=== PATIENT | male | born 1955 | race Caucasian/White ===

== ENCOUNTER 2021-04-18 12:09 | Outpatient (CLI) | payer BC, SELFPAY ==
--- NOTE | ~2021-04-18 | XR_ITS ---
EXAMINATION: XR shoulder RT min 2V DATE: 04/18/2021 12:30 INDICATION: Right shoulder pain. TECHNIQUE: 5 views of right shoulder were obtained. COMPARISON: None. FINDINGS: Bone alignment is normal. No acute fracture. There is mild osteoarthritis of glenohumeral j oint and severe osteoarthritis of acromioclavicular joint. IMPRESSION: 1. Polyarticular osteoarthritis. Reviewed, dictated and finalized at location A. DRATOR
== END 2021-04-18 12:10 | disposition home or self-care (01) ==
LOC: CHSIMG 12:14
PROVIDERS: PCP Internal Medicine; Visit Provider Internal Medicine
DX: M25.511 Pain in right shoulder (principal)
CPT/HCPCS: 73030

== ENCOUNTER 2021-08-25 15:23 | Outpatient (CLI) | payer BC, SELFPAY ==
[2021-08-25 15:43] LABS: Basophils Absolute Auto 0.06 K/mm3 (0.00-0.10); Basophils Percent Auto 0.5 % (0.0-1.0); Eosinophils Percent Auto 1.8 % (1.0-6.0); Hematocrit 40.4 % (40.0-54.0); Hemoglobin 13.3 g/dL (14.0-18.0); Immature Granulocyte Absolute 0.04 K/mm3 (0.00-0.00); Immature Granulocyte Percent A 0.4 % (0.0-0.0); Lymphocytes Absolute Auto 1.91 K/mm3 (1.10-4.50); Lymphocytes Percent Auto 16.7 % (18.0-42.0); Mean Corpuscular HGB Conc 32.9 g/dL (32.0-36.0); Mean Corpuscular Hemoglobin 32.2 pg (27.0-31.0); Mean Corpuscular Volume 97.8 fL (78.0-102.0); Mean Platelet Volume 11.2 fl (8.7-11.0); Monocytes Absolute Auto 0.84 K/mm3 (0.10-0.90); Monocytes Percent Auto 7.4 % (2.0-11.0); Neutrophils Absolute Auto 8.4 K/mm3 (1.7-7.2); Neutrophils Percent Auto 73.2 % (50.0-70.0); Platelet Count Result 217 K/mm3 (150-420); Red Blood Count 4.13 M/mm3 (4.70-6.10); Red Cell Distribution Width 13.2 % (11.6-14.4); White Blood Count 11.4 K/mm3 (4.8-10.8)
[2021-08-25 16:00] LABS: Alanine Aminotransferase 35 U/L (16-63); Albumin Level 4.1 g/dL (3.4-5.0); Alkaline Phosphatase 73 U/L (46-116); Anion Gap 7 mmol/L (8-16); Aspartate Amino Transferase 24 U/L (15-37); Bilirubin,Total 0.3 mg/dL (0.00-1.00); Blood Urea Nitrogen 19 mg/dL (7-18); Calcium 8.9 mg/dL (8.5-10.1); Carbon Dioxide 30 mmol/L (21-32); Chloride 104 mmol/L (98-108); Estimated Glomerular Filt Rate > 60; Glucose 102 mg/dL (70-99); Osmolality Calculated 294 mOsm/kg (285-295); Potassium 4.1 mmol/L (3.5-5.1); Sodium 141 mmol/L (136-145); Uric Acid 7.1 mg/dL (3.5-7.2)
== END 2021-08-25 15:24 | disposition home or self-care (01) ==
LOC: CHSLAB 15:24
PROVIDERS: PCP Internal Medicine; Visit Provider Internal Medicine
DX: M10.9 Gout, unspecified (principal)
CPT/HCPCS: 36415; 80053; 84550; 85025

== ENCOUNTER 2021-11-28 09:09 | Outpatient (CLI) | payer BC, SELFPAY ==
--- NOTE | ~2021-11-28 | XR_ITS ---
EXAMINATION: XR hand RT min 3V DATE: 11/28/2021 09:24 INDICATION: Right hand pain and swelling . Gout. TECHNIQUE: Posteroanterior, oblique and lateral views of the right hand were obtained. COMPARISON: None. FINDINGS: Alignment is normal. No fracture. Mild polyarticular osteoarthritis including at the wrist, triscaphe , first carpometacarpal, first-third metacarpophalangeal and multiple interphalangeal joints. Suggest ion of a few small erosions including at the radial styloid process and at the radial side of the hea d of the third middle phalanx which may be related to reported history of gout. Subtle dystrophic sof t tissue calcification related to the head of the third metacarpal with prominent perinephric soft ti ssue swelling dorsal to the head of the third metacarpal. Additional mild periarticular soft tissue s welling about several of the interphalangeal joints. IMPRESSION: 1. Mild polyarticular osteoarthritis at the right hand and wrist. 2. Nonspecific subtle dystrophic soft tissue calcification and periarticular soft tissue swelling abo ut the head of the third metacarpal which along with a couple potential small erosions at the radial styloid process and head of the third middle phalanx could be related to reported history of gout. Reviewed, dictated and finalized at location B. IMPRESSION: 1. Mild polyarticular osteoarthritis at the right hand and wrist. 2. Nonspecific subtle dystrophic soft tissue calcification and periarticular so ft tissue swelling about the head of the third metacarpal which along with a co uple potential small erosions at the radial styloid process and head of the thi rd middle phalanx could be related to reported history of gout.
== END 2021-11-28 09:10 | disposition home or self-care (01) ==
LOC: CHSIMG 09:12
PROVIDERS: PCP Internal Medicine; Visit Provider Internal Medicine
DX: M79.641 Pain in right hand (principal)
CPT/HCPCS: 73130

== ENCOUNTER 2022-09-21 00:57 | Day surgery (SDC) | payer BC, SELFPAY ==
[2022-09-07 15:06] VITALS: BMI 31.6
[2022-09-21 11:43] VITALS: BP 150/93; PULSE 59; RESP 18; TEMP 36.2; O2SAT 96
[2022-09-21] MEDS: LACTATED RINGERS 1,000 ML 150 ML IV CONT (11:51)
--- NOTE | 2022-09-21 12:06 | PM.HPGS ---
History of Present Illness History of Present Illness Consent: Risks, benefits, and alternatives have been discussed and questions answered. Patient agrees to proceed with procedure. Chief complaint: neoplasm screening Narrative: Jacky Troy is a 66 year old male here for screening colonoscopy, last one in 2008 Review of Systems Constitutional: Constitutional: Denies headache(s) and Denies weakness Eyes: Eyes: Denies blurry vision ENT: Reports Normal hearing present, Denies headache(s) and Denies neck pain Cardiovascular: Cardiovascular: Denies chest pain and Denies dyspnea Respiratory: Respiratory: Denies dyspnea Gastrointestinal: Gastrointestinal: Reports no additional gastrointestinal complaints Genitourinary: Genitourinary: Denies dysuria Musculoskeletal: Musculoskeletal: Denies neck pain Integumentary/Breasts: Skin/Breast: Denies dry skin Neurologic: Reports Normal hearing present, Denies headache(s) and Denies weakness Psychiatric: Psychiatric: Denies anxiety Endocrine: Endocrine: Denies change in body appearance Hematologic/Lymphatic: Hematologic/Lymphatic: Denies easy bleeding Allergic/Immunologic: Allergic/Immunologic: Denies urticaria PMFSH Past Medical History Medical History (Updated 09/21/22 @ 12:07 by Aren Faustin MD) Colon cancer screening Social History Social History Smoking status: Never smoker Alcohol intake: current Drinks per week: 2 Substance use: former Substance use type: marijuana Living arrangements: with family Spiritual care concerns: No Meds Home Medications and Allergies Home Medications Medication Instructions Recorded Confirmed Type allopurinol 300 mg tablet 300 mg PO DAILY 09/07/22 09/07/22 History amlodipine 2.5 mg tablet 2.5 mg PO DAILY 09/07/22 09/07/22 History colchicine 0.6 mg tablet 0.6 mg PO DAILY 09/07/22 09/07/22 History indomethacin 50 mg capsule 100 mg PO DAILY PRN gout 09/07/22 09/07/22 History irbesartan 150 mg tablet 150 mg PO DAILY 09/07/22 09/07/22 History Allergies Allergy/AdvReac Type Severity Reaction Status Date / Time No Known Allergies Allergy Verified 09/21/22 11:42 Vital Signs Vital Signs - 24 hr 09/21/22 11:43 Temperature 97.2 F L Pulse Rate 59 L Respiratory Rate 18 Blood Pressure 150/93 H Pulse Oximetry 96 Oxygen Delivery Room Air Exam Const: General: comfortable and no acute distress HENMT: Face/Nose/Sinus: Normal nares present Eyes: General: appearance normal, both eyes and all related structures Neck: Neck: no JVD Resp: Auscultation: clear to auscultation bilaterally Cardio: Rate: regular rate Rhythm: regular rhythm GI: Inspection: non-distended GI Palp: Yes Soft to palpation Skin: General skin exam: normal color Neuro: General: gait normal Speech: normal speech Extrem: General: normal to inspection Psych: Mental Status: mental status grossly normal Assessment and Plan Assessment and plan (1) Colon cancer screening: Code(s): Z12.11 - Encounter for screening for malignant neoplasm of colon Status: Acute Assessment and Plan: colonoscopy
--- NOTE | 2022-09-21 12:10 | WPDANESEPPF ---
Anes - Initial Pre Proc Eval Procedure: Operation Date: 09/21/22 13:00 Proposed Procedures p Screening Colonoscopy - Aren Faustin MD Date/Time: 09/21/22 12:10 Surgeon: Aren Faustin MD Pre Op Diagnosis: neoplasm screening Patient Data Age: 66 Gender: M Height: 1.85 m Weight: 109.5 kg Last Vital Signs Temp 97.2 F L 09/21/22 11:43 Pulse 59 L 09/21/22 11:43 Resp 18 09/21/22 11:43 BP 150/93 H 09/21/22 11:43 Pulse Ox 96 09/21/22 11:43 O2 Del Method Room Air 09/21/22 11:43 Allergies Allergy/AdvReac Type Severity Reaction Status Date / Time No Known Allergies Allergy Verified 09/21/22 11:42 Home Medications Medication Instructions Recorded Confirmed Type allopurinol 300 mg tablet 300 mg PO DAILY 09/07/22 09/07/22 History amlodipine 2.5 mg tablet 2.5 mg PO DAILY 09/07/22 09/07/22 History colchicine 0.6 mg tablet 0.6 mg PO DAILY 09/07/22 09/07/22 History indomethacin 50 mg capsule 100 mg PO DAILY PRN gout 09/07/22 09/07/22 History irbesartan 150 mg tablet 150 mg PO DAILY 09/07/22 09/07/22 History Patient hx anesthesia problems: none Family hx anesthesia problems: none Results Review: All pre-operative results and documents have been reviewed as part of the pre-operative evaluation. [facility] Past Medical History Medical History (Updated 09/21/22 @ 12:07 by Aren Faustin MD) Colon cancer screening Social History Social History Smoking status: Never smoker Alcohol intake: current Drinks per week: 2 Substance use: former Substance use type: marijuana Living arrangements: with family Spiritual care concerns: No Anes - Eval Final PreProcedure Day of Procedure 09/21/22 12:10 Patient weight: obese Heart: regular rate and rhythm Lungs: clear to auscultation Airway: Mallampati scale class II Neurological: alert and oriented Last oral intake: >/= 8 hours ASA classification: II Emergent: no Anesthetic plan: proceed Anesthesia type and monitoring: general GIVS and standard monitoring Results Review: All pre-operative results and documents have been reviewed as part of the pre-operative evaluation. Informed Consent: The patient's anesthetic plan and its attendant risks and benefits were discussed with the patient/family/POA. Questions were solicited and answers provided to the satisfaction of the patient/family/POA.
[2022-09-21 12:40] VITALS: BP 118/69; PULSE 52; RESP 18; O2SAT 98
[2022-09-21 12:50] VITALS: BP 122/72; PULSE 50; RESP 20; O2SAT 100
[2022-09-21 13:00] VITALS: BP 121/81; PULSE 54; RESP 18; O2SAT 99
== END 2022-09-21 13:10 | disposition home or self-care (01) ==
PROVIDERS: PCP Internal Medicine; Visit Provider Internal Medicine Gastroenterology
PROC: 0DJD8ZZ Inspection of Lower Intestinal Tract, Via Natural or Artificial Opening Endoscopic (ICD-10-PCS; CPT 45378; principal; 2022-09-21 13:00)
DX: Z12.11 Encounter for screening for malignant neoplasm of colon (principal); K57.30 Diverticulosis of large intestine without perforation or abscess without bleeding; D12.2 Benign neoplasm of ascending colon; K64.8 Other hemorrhoids; E66.9 Obesity, unspecified; Z68.31 Body mass index [BMI] 31.0-31.9, adult
CPT/HCPCS: 45385; 88305; J2704; J7120

== ENCOUNTER 2022-11-11 08:54 | Emergency (ER) | payer BC, SELFPAY ==
[2022-11-11 08:54] VITALS: BP 172/107; PULSE 57; RESP 15; TEMP 36.6; O2SAT 97
--- NOTE | 2022-11-11 09:11 | ED.EYEPROB ---
HPI - Eye Problem General Chief complaint: Eye Problems Stated complaint: left eye irritation Time Seen by Provider: 11/11/22 09:08 Source: patient Mode of arrival: ambulatory Limitations: no limitations History of Present Illness HPI Narrative: Patient was working outside yesterday and then came inside felt some discomfort in his left eye. Use Visine and then he also used some old numbing eye drops that he got from the urgent care the year so ago . He is at about 5 times is I just kept getting watery and redder and redder more uncomfortable. Feels like there is something in the eye. Says he is seeing okay denies any blurred vision or loss of vision. Wears glasses. Complains of watery runny nose. Has a sore throat cough fever nausea vomiting diarrhea dizziness lightheadedness rash or itching swelling lumps or bumps. Denies any other complaints. Related Data Home Medications Medication Instructions Recorded Confirmed allopurinol 300 mg tablet 300 mg PO DAILY 09/07/22 11/11/22 amlodipine 2.5 mg tablet 2.5 mg PO DAILY 09/07/22 11/11/22 colchicine 0.6 mg tablet 0.6 mg PO DAILY 09/07/22 11/11/22 indomethacin 50 mg capsule 100 mg PO DAILY PRN gout 09/07/22 11/11/22 irbesartan 150 mg tablet 150 mg PO DAILY 09/07/22 11/11/22 Allergies Allergy/AdvReac Type Severity Reaction Status Date / Time No Known Allergies Allergy Verified 11/11/22 09:06 Review of Systems Review of Systems: All systems reviewed & are unremarkable except as noted in HPI and below PMFSH Past Medical History Medical History Colon cancer screening Social History Social History Smoking status: Never smoker Alcohol intake: current Drinks per week: 2 Substance use: former Substance use type: marijuana Living arrangements: with family Spiritual care concerns: No Exam Narrative: Patient is a white male? and appears in no apparent distress. ? Head is normocephalic atraumatic. ? Eyes:? Pupils are equal round react light extraocular movements are intact. Left eye conjunctiva is injected red with watery discharge. Fundi were normal. Eyelids were slightly swollen on the left. Tetracaine drops were placed in left eye. Fluorescein exam was done there was a dot uptake a floor seen just outside the pupil at the 3 o'clock position. Sclera were normal. The eyelid was everted there was no foreign body seen. Eye was irrigated with saline to remove the floor seen stain. ? Ears:?? Ear canals are normal.? Hearing is grossly normal. ? Nose:? Normal. ? Throat:? Oropharynx is clear with moist mucous membranes.? Posterior pharynx is clear with no exudates. ? Neck:? Supple no lymphadenopathy.? Full range of motion? without tenderness. Const: General: healthy appearing Nutritional Appearance: well nourished Orientation/consciousness: patient oriented x3 Limitations: no limitations Course Vital Signs Vital signs: Vital Signs Temperature 36.6 C 11/11/22 08:54 Pulse Rate 57 L 11/11/22 08:54 Respiratory Rate 15 11/11/22 08:54 Blood Pressure 172/107 H 11/11/22 08:54 Pulse Oximetry 97 11/11/22 08:54 Oxygen Delivery Room Air 11/11/22 08:54 Temperature 36.6 C 11/11/22 08:54 Pulse Rate 60 11/11/22 09:49 Respiratory Rate 18 11/11/22 09:49 Blood Pressure 174/103 H 11/11/22 09:49 Pulse Oximetry 97 11/11/22 08:54 Oxygen Delivery Room Air 11/11/22 08:54 Discharge Plan Discharge Clinical Impression: Abrasion, corneal Qualifiers: Encounter type: initial encounter Laterality: left Qualified Code(s): S05.02XA - Injury of conjunctiva and corneal abrasion without foreign body, left eye, initial encounter Patient Disposition: Home, Self-Care Condition: Stable Instructions: Antibiotic Form, Corneal Abrasion (ED) Additional Instructions: Polytrim eyedrops 1 drop 4 times a day both eye
[2022-11-11] MEDS: FLUORESCEIN SOD 1 MG/STRIP EACH EYE (09:18)
[2022-11-11] MEDS: TETRACAINE HCL 0.5% OPHTH SOLN 4 ML BTL 1 DROP EACH EYE (09:18)
[2022-11-11] MEDS: DACRIOSE EYE IRRIGATION 118 ML BOTTLE 60 ML LEFT EYE (09:18)
[2022-11-11 09:49] VITALS: BP 174/103; PULSE 60; RESP 18
== END 2022-11-11 10:00 | disposition home or self-care (01) ==
LOC: CHSED 10:00
PROVIDERS: Emergency Provider Emergency Medicine; PCP Internal Medicine
DX: S05.00XA Injury of conjunctiva and corneal abrasion without foreign body, unspecified eye, initial encounter (principal); X58.XXXA Exposure to other specified factors, initial encounter
CPT/HCPCS: 99283; A9270